=== PATIENT | female | born 1995 | race African-American/Black ===

== ENCOUNTER 2017-08-21 13:34 | Emergency (ER) | payer OTHER ==
[~2017-08-21] VITALS: Ht 157.5 cm; Wt 49.9 kg
--- NOTE | ~2017-08-21 | EKG ---
[address] [address] ELECTROCARDIOGRAM REPORT Name: JOSE SMITH [id number] Admission: 08/21/17 Attend Phys: Discharge: 08/21/17 Date of : [birth year] Report #: [id number] THIS REPORT FOR: //name// [facility] ED Test Date: 2017-08-21 Test Time: 13:40:02 Pat Name: JOSE SMITH Department: Room: Gender: F Foot Tender: Evelyn JURADO : 1995 Requested By: Dawood Warren Order Number: [id number] MD: Shaggy Martin Measurements Intervals [place] Rate: 50 P: 6 ME: 169 QRS: 9 QRSD: 99 T: 30 QT: 418 QTc: 382 Interpretive Statements Sinus rhythm No previous ECG available for comparison Electronically Signed On 08-21-2017 20:29:17 CDT by Shaggy Martin [email or web address] <ELECTRONICALLY SIGNED> By: Shaggy Martin MD 08/21/172028 1340 1340 Shaggy Martin MD /EPI
[2017-08-21] MEDS ORDERED: PREDNISONE 20 M20 MG PO (14:11)
[2017-08-21 15:03] VITALS: BP 104/61
== END 2017-08-21 15:08 | disposition home or self-care (01) ==
LOC: ER 13:34
DX: R07.89 Other chest pain (principal); F15.10 Other stimulant abuse, uncomplicated; Z88.6 Allergy status to analgesic agent